=== PATIENT | female | born 1975 | race Two or more races ===

== ENCOUNTER 2017-12-15 08:47 | Outpatient (CLI) | payer OTHER | END 2017-12-15 09:05 | disposition home or self-care (01) | LOC: MAMO-SONO 08:47 | DX: Z12.31 Encounter for screening mammogram for malignant neoplasm of breast (principal); N64.4 Mastodynia; N60.11 Diffuse cystic mastopathy of right breast; E04.8 Other specified nontoxic goiter ==

== ENCOUNTER 2018-03-28 08:53 | Outpatient (CLI) | payer OTHER | END 2018-03-28 09:17 | disposition home or self-care (01) | LOC: RAD 501 08:53 | DX: J30.9 Allergic rhinitis, unspecified (principal); J98.01 Acute bronchospasm; J45.909 Unspecified asthma, uncomplicated ==

== ENCOUNTER 2019-03-19 13:59 | Outpatient (CLI) | payer OTHER | END 2019-03-19 14:33 | disposition home or self-care (01) | LOC: MAMO-SONO 13:59 | DX: Z12.31 Encounter for screening mammogram for malignant neoplasm of breast (principal); Z87.898 Personal history of other specified conditions; N63.10 Unspecified lump in the right breast, unspecified quadrant; N63.20 Unspecified lump in the left breast, unspecified quadrant; N64.4 Mastodynia; N60.11 Diffuse cystic mastopathy of right breast ==